=== PATIENT | female | born 1985 | race Caucasian/White ===

== ENCOUNTER → 2019-04-28 | Outpatient (CLI) | payer OTHER, SELFPAY ==
[2019-04-28 11:44] LABS: Erythrocyte Sedimentation Rate 12 mm/hr (0-20)
[2019-04-28 11:49] LABS: CRP < 2.90 mg/L (0.0-3.0)
[2019-04-29 11:23] LABS: Complement C3 96 mg/dL (82-167)
[2019-04-29 15:06] LABS: ANTINUCLEAR ANTIBODIES DIRECT Negative (Negative)
== END | disposition home or self-care (01) ==
PROVIDERS: Family Provider Family Medicine; PCP Family Medicine
DX: E34.9 Endocrine disorder, unspecified (principal); R53.83 Other fatigue; E03.9 Hypothyroidism, unspecified; E55.9 Vitamin D deficiency, unspecified
CPT/HCPCS: 36415; 85652; 86038; 86140; 86160

== ENCOUNTER 2020-05-01 11:00 | Emergency (ER) | payer OTHER, SELFPAY ==
[2020-05-01 11:02] VITALS: BP 125/68; PULSE 114; RESP 15; TEMP 36.7; O2SAT 97; BMI 29.2
--- NOTE | 2020-05-01 11:25 | ED.DCSUM_ITS ---
History of Present Illness Chief Complaint: Cellulitis Detail of Chief Complaint: Redness right foot and distal leg and pain posterior distal right thigh Informant: Patient, Significant Other Onset: Today - Redness of the foot and distal leg was noted today., Yesterday - The pain distal posterior right thigh started yesterday. Context: Sudden Onset Timing: Continuous Quality: Pain, redness and swelling Location: Distal posterior right thigh and distal right leg and foot Current Severity: Mild Maximum Severity: Mild Worsened by: Nothing Relieved by: Nothing Associated Symptoms: Subjective fever with chills last evening - Past Medical History (1) No significant past medical history Status: Acute Past Medical History - Allergies and Home Meds Allergies/Adverse Reactions: Allergies No Known Allergies Allergy (Verified 05/01/20 11:00) Primary Care Physician: Sai Paniagua DO [Primary Care Provider] - Prior records reviewed: No Surgical History: no surgical history Lives: Spouse/ Significant Other, With Family Smoking Status: Never smoker Alcohol: None Drugs: None Review of Systems General: Reports: Chills, Fever, Malaise, Subjective. Denies: Sweats, Weight loss Eyes: Denies: Visual changes - bilaterally, Blurred Vision - bilaterally ENT: Denies: Rhinorrhea, Sore throat Cardiovascular: Reports: - - No history of medic fever, heart murmur, mitral valve prolapse or being immune suppressed.. Denies: Chest pain, Palpitations Respiratory: Denies: Dyspnea, Cough, Sputum, Dyspnea on exertion Gastrointestinal: Denies: Abdominal pain, Nausea, Vomiting, Diarrhea, Melena, Hematochezia Genitourinary: Denies: Dysuria, Hematuria, Frequency Musculoskeletal: Reports: Myalgias, Swelling, Extremity Pain. Denies: Arthralgias, Neck pain, Back pain Skin: Reports: Rash, Wounds. Denies: Abscess, Abrasions Neurological: Denies: Headache, Weakness Hematologic: Denies: Easy bruising, Easy bleeding Physical Exam Vital Signs/Narrative: Vital Signs Temp Pulse Resp BP Pulse Ox 05/01/20 11:02 98.1 F 114 H 15 125/68 H 97 Inital Vital Signs reviewed: Yes Extremities: Tenderness, Edema, - - Swelling of the right foot with erythema. There are no lesions between the toes. There is mild erythema distal 3 cm of the right leg. There is no lymphangitis. There is no popliteal or inguinal adenopathy. Where patient complains of pain posterior distal right thigh there are varicosities. There is no palpable cords. There is no asymmetry of the leg or discoloration.. Negative for: Nontender, No edema Skin: Normal color, No Trauma, Rash. Negative for: Cyanosis, Diaphoresis, Jaundice Neurological: Alert, Oriented x3, Cranial nerves II-XII grossly intact, Normal Strength, Normal Sensation Psychological: Normal affect Diagnostic/Tx/Re-eval Laboratory Results 05/01/20 05/01/20 05/01/20 11:35 11:35 11:35 WBC 13.1 H RBC 4.23 Hgb 11.8 L Hct 34.8 L MCV 82.3 MCH 27.9 MCHC 33.9 RDW Std Deviation 41.5 RDW Coeff of Jw 14.3 Plt Count 233 MPV 9.1 Immature Gran % (Auto) 0.500 Neut % (Auto) 83.2 H Lymph % (Auto) 12.1 L [place] % (Auto) 4.0 Eos % (Auto) 0.0 Baso % (Auto) 0.2 Absolute Neuts (auto) 10.9 H Absolute Lymphs (auto) 1.58 Nucleated RBC % 0 Sodium 136 Potassium 3.5 Chloride 104 Carbon Dioxide 25.0 Anion Gap 7 BUN 7 Creatinine 0.65 Estim Creat Clear Calc 92.03 Est GFR (MDRD) Af Amer 134 Est GFR (MDRD) Non-Af 111 BUN/Creatinine Ratio 10.8 Glucose 113 H Lactic Acid 0.8 Calcium 8.7 Total Bilirubin 0.60 AST 24 ALT 43 Alkaline Phosphatase 46 Total Protein 7.7 Albumin 3.6 Globulin 4.1 Albumin/Globulin Ratio 0.9 Patient does have elevated white count. With elevated white count and tachycardia patient has sepsis. She is a candidate for outpatient therapy. Plan is IV clindamycin and discharged with prescription of clindamycin. Wound check in 2 days by her primary care physician Dr. Paniagua. - Medical Decision Making Patient has cellulitis of the right leg and foot. Patient is tachycardic. With her complaint of subjective fever and chills last evening infectious work-up was initiated. If lactate is elevated will obtain blood cultures prior to starting antibiotics. Otherwise we will treat with antibiotics. Well score for DVT is - 2. D-dimer was not obtained since she has evidence of cellulitis and would represent a false positive result. ED Disposition - Plan for ED Patient: Disposition: Home or Assisted Living Diagnosis: Cellulitis of right lower leg Instructions: Cellulitis Prescriptions: Clindamycin HCl [Cleocin] 300 mg PO Q6H #28 cap Prescription Printed Referrals: Sai Paniagua DO [Primary Care Provider] - 2 Days for wound check
[2020-05-01 11:46] LABS: Absolute Lymphocyte Count 1.58 X10^3/uL (0.83-4.51); Absolute Neutrophil Count 10.9 X10^3/uL (2.0-7.7); Basophil# 0.02 X10^3/uL; Basophil% 0.2 % (0-1); Hematocrit 34.8 % (37-47); Hemoglobin 11.8 g/dL (12.0-15.0); Lymphocyte # 1.58 X10^3/ul (4.0); Lymphocyte % 12.1 % (19-41); Mean Corp Hgb Conc 33.9 g/dL (32-36); Mean Corpuscular Hgb 27.9 pg (27.0-32.0); Mean Corpuscular Volume 82.3 fL (81-99); Mean Platelet Vol. 9.1 fl (6.2-12.0); Monocyte# 0.52 X10^3/uL; NRBC Flagged by Analyzer 0 % (0-5); Neutrophil % 83.2 % (47-70); Platelet Count 233 K/mm3 (150-450); RBC Distribution Width CV 14.3 % (11.6-14.6); RBC Distribution Width SD 41.5 fl (35.1-43.9); Red Blood Count 4.23 M/mm3 (4.2-5.4); White Blood Count 13.1 K/mm3 (4.4-11.0)
[2020-05-01] MEDS: 0.9% Normal Saline 1,000 ML 1000 ML IV (11:46)
[2020-05-01 12:02] LABS: ALB/GLOB Ratio 0.9 RATIO (0.9-2.4); AST(SGOT) 24 U/L (15-37); Alanine Aminotransfer ALT/SGPT 43 U/L (13-56); Albumin, Serum 3.6 g/dL (3.2-5.0); Alkaline Phosphatase 46 U/L (45-117); Anion Gap 7 (5-15); BUN 7 mg/dL (7-18); BUN/Creat Ratio 10.8 RATIO (10-20); Calcium,Total 8.7 mg/dL (8.5-10.1); Chloride 104 mmol/L (98-107); Creatinine, Serum 0.65 mg/dL (0.55-1.02); EST Glomerular Filtration Rate 111 mL/min (>60); Est Glom Filt Rate - Afr Amer 134 mL/min (>60); Estimated Creatinine Clearance 92.03 ml/min; Globulin 4.1 g/dL (2.2-4.2); Glucose 113 mg/dL (74-106); Potassium 3.5 mmol/L (3.5-5.1); Protein, Total 7.7 g/dL (6.4-8.2); Sodium Level 136 mmol/L (136-145)
[2020-05-01 12:12] LABS: Lactic Acid 0.8 mmol/L (0.4-1.9)
[2020-05-01 15:10] VITALS: BP 117/77; PULSE 100; RESP 16; O2SAT 99
== END 2020-05-01 15:12 | disposition home or self-care (01) ==
PROVIDERS: Emergency Provider Emergency Medicine; PCP Family Medicine
DX: L03.115 Cellulitis of right lower limb (principal)
CPT/HCPCS: 80053; 83605; 85025; 96361; 96365; 96366; 99284; J7030